=== PATIENT | female | born 1980 | race African-American/Black ===

== ENCOUNTER 2018-08-30 14:50 | Emergency (ER) | payer OTHER ==
[~2018-08-30] VITALS: Ht 170.2 cm; Wt 59.0 kg
[~2018-08-30 14:50] MED LIST: RIZATRIPTAN5 MG PO; TOPI25 PO
[2018-08-30] MEDS ORDERED: METO10 PO (20:17)
[2018-08-30] MEDS ORDERED: BENADRYL25 MG PO (20:17)
== END 2018-08-30 20:51 | disposition home or self-care (01) ==
LOC: ER 14:50
DX: R51 Headache (principal); Z88.6 Allergy status to analgesic agent; Z79.899 Other long term (current) drug therapy
CPT/HCPCS: 96374; 96375; 99283-25; J1100; J1200; J2765; J7030

== ENCOUNTER 2018-09-06 23:32 | Emergency (ER) | payer OTHER ==
[~2018-09-06] VITALS: Ht 170.2 cm; Wt 59.0 kg
[~2018-09-06 23:32] MED LIST changes: +BENADRYL25 MG PO; +METO10 PO
[2018-09-07] MEDS ORDERED: HYDR1TAB94 PO (00:11)
== END 2018-09-07 02:04 | disposition home or self-care (01) ==
LOC: ER 23:32
DX: G43.909 Migraine, unspecified, not intractable, without status migrainosus (principal)
CPT/HCPCS: 96361; 96374; 96375; 99283-25; J0780; J1200; J7030

== ENCOUNTER 2018-09-11 17:18 | Emergency (ER) | payer BC ==
[~2018-09-11] VITALS: Ht 167.6 cm; Wt 61.2 kg
[~2018-09-11 17:18] MED LIST changes: +HYDR1TAB94 PO
== END 2018-09-11 18:45 | disposition home or self-care (01) ==
LOC: ER 17:18
DX: G43.909 Migraine, unspecified, not intractable, without status migrainosus (principal); Z88.8 Allergy status to other drugs, medicaments and biological substances
CPT/HCPCS: 96374; 96375; 99282-25; J1100; J1200; J2765

== ENCOUNTER 2018-09-27 23:17 | Emergency (ER) | payer BC ==
[~2018-09-27] VITALS: Ht 167.6 cm; Wt 61.2 kg
[2018-09-27] MEDS ORDERED: ACET500 PO (23:44)
== END 2018-09-28 04:05 | disposition home or self-care (01) ==
LOC: ER 23:17
DX: S09.90XA Unspecified injury of head, initial encounter (principal); W01.198A Fall on same level from slipping, tripping and stumbling with subsequent striking against other object, initial encounter; Z88.8 Allergy status to other drugs, medicaments and biological substances; G43.909 Migraine, unspecified, not intractable, without status migrainosus
CPT/HCPCS: 70450; 96361; 96374; 96375; 99284-25; J1100; J1200; J2765; J7030

== ENCOUNTER → 2018-11-25 | Outpatient (CLI) | payer SELFPAY ==
[~2018-11-25] MED LIST changes: +ACET500 PO
== END ==
LOC: LAB 11:17 → LAB SHORT 11:17
DX: R30.0 Dysuria (principal)
CPT/HCPCS: 87077; 87086; 87186

== ENCOUNTER 2019-08-11 20:06 | Observation (INO) | payer BC ==
[~2019-08-11] VITALS: Ht 170.2 cm; Wt 64.5 kg
[2019-08-11 20:23] LABS: BASOPHILS ABSOLUTE AUTO 0.03 K/mm3 (0.00-0.23); BASOPHILS PERCENT AUTO 0 % (0-2); EOSINOPHILS ABSOLUTE AUTO 0.26 K/mm3 (0.00-0.68); EOSINOPHILS PERCENT AUTO 3 % (0-6); Hematocrit 36.6 % (33.0-51.0); Hemoglobin 12.4 g/dL (11.5-16.0); IMMATURE GRAN ABSOLUTE AUTO 0.02 K/mm3 (0.00-0.10); IMMATURE GRAN PERCENT AUTO 0 % (0-1); LYMPHOCYTES ABSOLUTE AUTO 2.77 K/mm3 (0.84-5.20); LYMPHOCYTES PERCENT AUTO 34 % (21-46); MONOCYTES ABSOLUTE AUTO 0.43 K/mm3 (0.16-1.47); MONOCYTES PERCENT AUTO 5 % (4-13); Mean Corpuscular HGB 28.4 pg (26.0-34.0); Mean Corpuscular HGB Conc 33.9 g/dL (31.5-36.5); Mean Corpuscular Volume 84 fL (80-100); Mean Platelet Volume 10.1 fL (9.1-12.4); NEUTROPHILS ABSOLUTE AUTO 4.66 K/mm3 (1.96-9.15); NEUTROPHILS PERCENT AUTO 57 % (41-73); Platelet Count 269 K/mm3 (150-400); RDW Coefficient Variation 13.4 % (11.7-14.2); RDW Standard Deviation 41.8 fL (35.1-46.3); Red Blood Cell Count 4.36 M/mm3 (3.80-5.20); White Blood Cell Count 8.17 K/mm3 (4.00-11.30)
[2019-08-11 20:36] LABS: Alanine Aminotransfer (ALT/SGP 16 U/L (12-78); Albumin/Globulin Ratio 1.1 (0.8-1.8); Alk Phos 43 U/L (50-136); Anion Gap 9 mmol/L (6-16); Aspartate Aminotrans (AST/SGOT 15 U/L (12-37); Bilirubin, Total 0.3 mg/dL (0.1-1.0); Blood Urea Nitrogen 12 mg/dL (8-24); Bun/Creatinine Ratio 15.6 (12.0-20.0); CO2, Blood 21 mmol/L (21-32); Calcium, Blood 9.2 mg/dL (8.5-10.1); Chloride, Blood 109 mmol/L (98-108); Creatinine, Blood 0.77 mg/dL (0.40-1.00); Globulin, Blood 3.7 g/dL (2.2-4.0); Glomerular Filtration Rate >60 (60-); Glucose, Blood 107 mg/dL (70-99); Potassium, Blood 3.3 mmol/L (3.5-5.5); Sodium, Blood 139 mmol/L (136-145); Total Protein, Blood 7.7 g/dL (6.4-8.2)
[2019-08-11 20:37] LABS: International Normalized Ratio 0.99; Prothrombin Time Results 10.5 Sec (9.7-11.5)
[2019-08-12 02:01] LABS: Source, Urine Clean Catch
[2019-08-12 02:05] LABS: Bilirubin, Urine Neg (Neg); Blood, Urine 1+ (Neg); Glucose Qualitative, Urine 4+ (Neg); Ketones, Urine 2+ (Neg); Leukocyte Esterase, Urine Neg (Neg); Nitrite, Urine Neg (Neg); Protein, Urine 1+ (Neg); Specific Gravity, Urine 1.005 (1.003-1.022); Urobilinogen, Urine 1+ (Normal)
[2019-08-12 02:12] LABS: Appearance, Urine Clear (Clear); Color, Urine Yellow (P-Yellow)
[2019-08-12 02:13] LABS: Bacteria Rare /hpf; Squamous Epithelial Cells Few /hpf (Few); White Blood Cells, Urine Not Seen /hpf (0-5)
--- NOTE | 2019-08-12 02:14 | NUR ---
MRI SCREENING FORM FILLED OUT, SIGNED BY PATIENT AND FAXED TO IMAGING.
[2019-08-12 02:23] LABS: U Amphetamine Screen Not Detected; U Barbituate Screen Not Detected; U Benzodiazapine Screen Not Detected; U Buprenorphine Screen Not Detected; U Cannabinoids Screen Not Detected; U Cocaine Screen Not Detected; U Methadone Screen Not Detected; U Methamphetamine Screen Not Detected; U Opiates Screen Not Detected; U Oxycodone Screen Not Detected; U Phencyclidine Screen Not Detected
[2019-08-12 02:24] LABS: U Propoxyphene Screen Not Detected
--- NOTE | 2019-08-12 04:56 | NUR ---
SHIFT SUMMARY PT NEW ED ADMIT THIS EVENING. PT CAME TO ED WITH STROKE LIKE SYMPTOMS. BY THE TIME PT WAS ADMITTED SYMPTOMS HAD COMPLETELY RESOLVED. PUPILS ARE EQUAL AND REACTIVE. BUNK HOUSE WORKER ARE EQUAL AND STRONG. NO FACIAL DROOP NOTED. SPEECH APPEARS CLEAR. PT IS FROM [place] AND SPEAKS PRIMARILY [place], VERY LITTLE INDONESIAN. IS AT BEDSIDE AND ASSISTS W/ TRANSLATION. PT DOES CONTINUE TO REPORT VERY MINIMAL HEADACHE, WORSENED BY RESPIRATORY PANEL COLLECTION. PT SOON AFTER FELL ASLEEP AND SLEPT THE REMAINDER OF THE NIGHT. VITAL SIGNS STABLE. UA SENT TO LAB. MRI SCREENING FORM COMPLETED AND FAXED TO IMAGING. TELEMETRY PLACED READING SR IN THE 60'S. NO ACUTE CHANGES SINCE ADMISSION. WILL CONTINUE TO MONITOR AND REPORT TO DAY RN.
[2019-08-12 05:33] LABS: Adenovirus Not Detected (NOT DETECT); Bordetella pertussis Not Detected (NOT DETECT); Chlamydophila pneumoniae Not Detected (NOT DETECT); Coronavirus 229E Not Detected (NOT DETECT); Coronavirus HKU1 Not Detected (NOT DETECT); Coronavirus NL63 Not Detected (NOT DETECT); Coronavirus OC43 Not Detected (NOT DETECT); Human Metapneumovirus Not Detected (NOT DETECT); Human Rhinovirus/Enterovirus Not Detected (NOT DETECT); Influenza A Not Detected (NOT DETECT); Influenza A/2009-H1 Not Detected (NOT DETECT); Influenza A/H1 Not Detected (NOT DETECT); Influenza A/H3 Not Detected (NOT DETECT); Influenza B Not Detected (NOT DETECT); Mycoplasma pneumoniae Not Detected (NOT DETECT); Parainfluenza Virus 1 Not Detected (NOT DETECT); Parainfluenza Virus 2 Not Detected (NOT DETECT); Parainfluenza Virus 3 Not Detected (NOT DETECT); Parainfluenza Virus 4 Not Detected (NOT DETECT); Respiratory Syncytial Virus Not Detected (NOT DETECT)
[2019-08-12 06:25] LABS: Hematocrit 36.4 % (33.0-51.0); Hemoglobin 11.7 g/dL (11.5-16.0); Mean Corpuscular HGB 27.9 pg (26.0-34.0); Mean Corpuscular HGB Conc 32.1 g/dL (31.5-36.5); Mean Platelet Volume 10.2 fL (9.1-12.4); Platelet Count 255 K/mm3 (150-400); RDW Coefficient Variation 13.9 % (11.7-14.2); RDW Standard Deviation 44.2 fL (35.1-46.3)
[2019-08-12 06:28] LABS: Mean Corpuscular Volume 87 fL (80-100)
[2019-08-12 06:49] LABS: Alanine Aminotransfer (ALT/SGP 21 U/L (12-78); Albumin, Blood 3.3 g/dL (3.4-5.0); Alk Phos 43 U/L (50-136); Anion Gap 6 mmol/L (6-16); Aspartate Aminotrans (AST/SGOT 15 U/L (12-37); Bilirubin, Total 0.4 mg/dL (0.1-1.0); Blood Urea Nitrogen 13 mg/dL (8-24); Bun/Creatinine Ratio 16.7 (12.0-20.0); CO2, Blood 22 mmol/L (21-32); Calcium, Blood 8.4 mg/dL (8.5-10.1); Chloride, Blood 114 mmol/L (98-108); Creatinine, Blood 0.78 mg/dL (0.40-1.00); Globulin, Blood 3.3 g/dL (2.2-4.0); Glomerular Filtration Rate >60 (60-); Glucose, Blood 136 mg/dL (70-99); Potassium, Blood 4.4 mmol/L (3.5-5.5); Sodium, Blood 142 mmol/L (136-145); Total Protein, Blood 6.6 g/dL (6.4-8.2)
--- NOTE | 2019-08-12 15:07 | NUR ---
PATIENT COMPLAINED OF ANXIETY, FEAR RELATED TO HAVING ANOTHER EPISODE LIKE LAST NIGHT. PATIENT REQUESTED FOR AN ANTIANXIETY MEDICATION. DR MORALES WAS CALLED AT 1506 AND RELATED THE MESSAGE. DR MORALES STATES HE WILL PUT AN ORDER INTO THE EMAR. TRANSLATER PHONE PLACED IN PATIENT'S PHONE.
--- NOTE | 2019-08-12 16:31 | NUR ---
SHIFT SUMMARY THE PATIENT IS PLEASANT AND COOPERATIVE WITH STAFF. HAD AN EPISODE OF ANXIETY THIS AFTERNOON WHICH RESPONDED TO REQUESTED ANTI-ANXIETY MEDICATION. ALSO HAD AN EPISODE OF PAIN TO THE RIGHT SIDE OF HER FORHEAD; ADMINISTERED IV PAIN MEDICATION WITH EFFECTIVENESS. BP A LITTLE LOW THIS MORNING HOWEVER RESOLVED ON IT'S OWN, ALL OTHER VITALS STABLE AND WNL. THE PATIENT/FAMILY CALLS FOR HELP APPROPRIATELY. THERE ARE NO OTHER ACUTE CHANGES NOTED OR REPORTED AT THIS TIME. WILL CONTINUE TO MONITOR THE PATIENT.
--- NOTE | 2019-08-12 21:48 | NUR ---
PAIN: PATIENT REPORTS ABD. CRAMP LIKE PAIN, NO BM IN 3 DAYS. PATIENT REQUEST TYLENOL AND PRUNE JUICE, REPORTS PRUNE JUICE WORKS WELL AT HOME. PAIN IS IMPROVED WITH TYLENOL AND AWAITING RESULT OF PRUNE JUICE.
--- NOTE | 2019-08-12 21:51 | NUR ---
LANGUAGE LINE: LANGUAGE LINE WAS USED FOR ASSESSMENT, HUNTER SKIN DIVER [phone]. PATIENT IS ABLE TO MAKE NEEDS KNOWN BUT FULL ASSESSMENT WAS DONE WITH ASSISTANCE OF BIOFUELS PRODUCT MANAGER.
--- NOTE | 2019-08-13 00:08 | NUR ---
HEADACHE: PATIENT VOMITED 200ML EMESIS AND REPORTED HEADACHE STARTING AT 3/10. ZOFRAN WAS GIVEN FOR NAUSEA WITH GOOD EFFECT. HEADACHE PAIN QUICKLY INCREASED TO 5/10 AND THEN 10/10, WHILE WAITING FOR MEDICATION TO BE RECIEVED FROM PHARMACY, ABOUT 15 MIN. IMETREX AND IV FENTANYL WERE GIVEN WITH FAIR EFFECT. PATIENT IS RESTING IN BED WITH EYES CLOSED, FAMILY REMAINS AT BEDSIDE.
--- NOTE | 2019-08-13 07:22 | NUR ---
SHIFT SUMMARY: PATIENT SLEPT WELL THROUGHT THE SHIFT WITH FAMILY AT BEDSIDE. WOKE THIS MORNING REPORTING HEAD PRESSURE, IMETREX WAS GIVEN IMMEDIATELY WHEN PAIN WAS AT 3/10 WITH GOOD EFFECT.
--- NOTE | 2019-08-13 09:25 | NUR ---
PATIENT IS SLEEPING VERY WELL AT THIS TIME. FAMILY HAS ASKED THAT I ADMINISTER MEDICATIONS A LITTLE BIT LATER AND LET HER SLEEP IN A BIT LONGER. DID CHECK ON PATIENT AND SHE IS DOING OKAY. SLEEPING WITH DAUGHTER AT BEDSIDE.
--- NOTE | 2019-08-13 12:11 | NUR ---
LATE ENTRY FOR 08/12/19. DR MORALES IS AWARE THAT [facility]SA ORIGINALLY SCHEDULED FOR 1500 ON 08/12/19 WAS ADMINISTERED TO PATIENT AND THEN DISCONTINUED BY PHARMACY AFTER ADMINISTRATION OCCURED. DR MORALES WITHOUT CONCERNS OR ISSUES.
--- NOTE | 2019-08-13 12:54 | NUR ---
FAMILY FRIEND, NYLA, CAME TO ME AT NURSE ENVIRONMENTAL GEOLOGIST AND REQUESTED TO SPEAK TO THE NURSING ALLIGATOR HUNTER REGARDING TRANSFER TO [facility]. I CALLED NURSING ALLIGATOR HUNTER AND RELAYED THE MESSAGE AND SHE WILL BE UP HERE SHORTLY TO SPEAK WITH THE FAMILY. I DID GIVE THE NURSING ALLIGATOR HUNTER A HEADS UP REGARDING FAMILY/FRIENDS DINAMIC.
--- NOTE | 2019-08-13 17:03 | NUR ---
SHIFT SUMMARY THE PATIENT HAD AN EVENTFUL DAY WITH A COUPLE MIGRAINE HEADACHE EPISODES DURING THIS SHIFT. THE PATIENT SLEPT A BIT BUT WOULD WAKE WITH A HORRIBLE MIGRAINE IN ADDITION TO THE MIGRAINE SHE WOULD HAVE NAUSEA. THE PATIENT SEEMED TO RESPOND BEST TO THE TORADOL AND PO DILAUDID AND IS STILL FEELING WELL AT THIS TIME AND IS BACK TO HERSELF COMMUNICATING WITH STAFF AND FAMILY BEST SHE CAN. DR MORALES HAS BEEN IN COMMUNICATION WITH A NEUROSURGEON AND NEUROLOGIST UP AT [facility] AND HAS PUT IN ORDERS FOR A NEW MEDICATION REGIMEN TO TRY; THE FAMILY IS ON-BOARD. THE PATIENTS VITALS HAVE BEEN STABLE AND WNL. SHE IS RELAXING IN HER BED WITH HER AND FRIEND AT BEDSIDE. WILL CONTINUE TO MONITOR AND PROVIDE CARE NEEDED.
--- NOTE | 2019-08-14 04:10 | NUR ---
PT'S CAME OUT OF THE ROOM AT APPOXIMATELY 0345 STATING THAT THE PT WAS HAVING A SEVERE MIGRAINE. PT STATED THAT THE MIGRAINE WAS A 5 INITIALLY WHEN i ENTERED THE ROOM, WHICH QUICKLY CRAIG TO A 7 AND THEN TO A 10. PT WAS ADMINISTERED IV TORADOL, BENADRYL, AND COMPAZINE PER EMAR. PT WAS ALSO ADMINISTERED SCHEDULED TYLENOL AT THIS TIME, PREVIOUSLY SKIPPED DUE TO FAMILY'S REQUEST NOT TO WAKE PT. PT CALMED CONSIDERABLY AND IS RESTING PEACEFULLY 20 MINUTES AFTER MEDICATION ADMINISTRATION.
--- NOTE | 2019-08-14 05:22 | NUR ---
PT A/O THROUGH THIS SHIFT. PT WOKE ONCE EARLY IN THE SHIFT, STATING NO PAIN. AT 0345 PT WOKE WITH EXTREME MIGRAINE. PT MEDICATED PER EMAR AND WAS RESTING PEACEFULLY SHORTLY AFTER. HAS BEEN IN THE ROOM FOR MOST OF THIS SHIFT. PT AND DENY ANY FURTHER NEEDS.
--- NOTE | 2019-08-14 09:46 | NUR ---
PATIENT CONTINUES TO SLEEP COMFORTABLY AT THIS TIME. FAMILY DOES NOT WANT PATIENT TO BE DISTURBED FOR MEDICATION WHILE SHE IS SLEEPING. WILL OFFER SCHEDULED MEDS ONCE SHE IS AWAKE.
--- NOTE | 2019-08-14 12:40 | NUR ---
I WITNESSED THE PATIENT AT THE ONSET OF HER LATEST MIGRAINE THIS MORNING. SHE BEGAN TO MOAN AND SAY "MY HEAD" IN HER LANGUAGE OF KYRGYZ. THE PATIENT WAS ALERT, HOWEVER INAPPROPRIATE IN HER RESPONSES...ACTUALLY LACK OF RESPONSES. THE PATIENT LAID IN BED WITH HER EYES CLOSED, I OPENED BOTH EYES AND EXAMINED THEM WITH A PEN LIGHT AND THEY REACTED BRISK AND EQUALLY. THE PATIENT WAS UNABLE TO RESPOND TO REQUESTS OR QUESTIONS. SHE WAS NONRESPONSIVE. I ADMINISTERED THE PATIENT THE IV TORADOL AND COMPAZINE, HOWEVER HELD THE IV BENADRYL PER FAMILY REQUEST. THE MEDICATION BECAME EFFECTIVE PRETTY QUICKLY AND THE PATIENT SLOWLY RETURNED TO HER BASELINE OVER THE NEXT 10 MINUTES: RESPONDING TO QUESTIONS AND REQUESTS APPROPRIATELY AND AT HER BASELINE. THEY PATIENT WAS ASKED BY ME IF SHE REMEMBERS WHEN I LOOKED INTO HER EYES WITH A FLASHLIGHT AND SHE DENIED IT. THE FIRST RECOLLECTION THE PATIENT SAYS SHE HAD WAS TRYING TO GO TO THE BATHROOM, WHICH OCCURED JUST PRIOR TO ME MEDICATING HER. HER HAD TO LITERALLY CARRY THE PATIENT TO AND FROM THE BATHROOM WHEN WE TRIED TO STAND HER UP SHE WAS COMPLETELY FLACCID AND WOULD HAVE FELL TO THE GROUND IF THERE WERE NO ONE AT HER SIDE. THE PATIENT IS NOW FEELING BETTER AND MORE AT HER HOSPITAL BASELINE.
--- NOTE | 2019-08-14 16:25 | NUR ---
SHIFT SUMMARY THE PATIENT HAS HAD ONE MIGRAINE EPISODE THIS SHIFT, SEE PREVIOUS NURSE NOTE. SHE WAS TREATED WITH IV TORADOL AND IV COMPAZINE WITHOUT THE IV BENADRYL PER THE FAMILY REQUEST THEY WERE HOPING THE PATIENT WOULD STAY AWAKE A LITTLE BIT. THE PATIENT HAS TAKEN LITTLE NAPS T/O THE DAY BUT HAS OTHERWISE BEEN AWAKE AND SOCIAL WITH HER FAMILY AND FRIENDS WHO ARE VISITING. DR MORALES CAME AND SAW THE PATIENT AND GAVE A NEW ORDER TO TRY PO TOPAMAX, FOR LANDERS PREVENTION. THE PATIENT WAS ADMINISTERED THE MEDICATION AND HAS HAD NO ADVERSE REACTIONS TO THE MEDICATION THUS FAR. I PRINTED OUT AND GAVE MARILYN, THE PATIENT'S , SEVERAL PIECES OF EDUCATIONAL MATERIAL REGARDING THE PATIENTS CONDITION AND THE MEDICATIONS SHE IS TAKING CURRENTLY, OR HAS DURING THIS STAY. THE PATIENT IS CURRENTLY RESTING IN HER ROOM AT THIS TIME WITH VISITORS AT THE BEDSIDE. LANDERS IS MANAGED AT THIS TIME. WILL CONTINUE TO MONITOR AND PROVIDE CARE NEEDED.
--- NOTE | 2019-08-14 17:47 | NUR ---
PATIENT AND DECIDED THAT THEY WILL NOT DISCHARGE HOME TONIGHT D/T PHARMACIES BEING CLOSED AND NOT BEING ABLE TO WOODS BOSS PRESCRIPTIONS TONIGHT. CALLED AND NOTIFIED DR MORALES. DR MORALES PLACING ORDERS INCLUDING TOPAMAX TO CONTINUE AND D/C ORDERS FOR TOMORROW.
[2019-08-14] MEDS ORDERED: ASPI81CH PO (18:32)
[2019-08-14] MEDS ORDERED: KETO10 PO (18:35)
[2019-08-14] MEDS ORDERED: SUMA25 PO (18:38)
--- NOTE | 2019-08-15 04:28 | NUR ---
08/14/19 @2130 CALLED INTO PT'S ROOM BY . STATED CONCERNED PT WAS TALKING ON THE PHONE WITH BROTHER AND NOTED PT'S TONGUE APPEARED TO BE SWOLLEN AND PT. WAS NOT ACTING LIKE HERSELF. THIS NURSE PERFORMED NEURO ASSESSMENT ON PT. NO DEFICITS NOTED. PT. A&O X4, SITTING UP IN BED AND ABLE TO ANSWER QUESTIONS CORRECTLY. TONGUE NOTED TO BE WNL AND VSS. PT. DENIED ANY PAIN OR DISCOMFORT. PT'S INSISTED PHYSICIAN BE NOTIFED. CALL PLACED TO HOSPITALIST BIOMEDICAL INSTRUMENT TECHNICIAN. DR. TALLEY CAME UP TO FLOOR TO EVALUATE PT. AND SPEAK WITH THE FAMILY. INSTRUCTED BY DR. TALLEY TO HOLD NIGHT TIME DOSE OF TOPAMAX PER FAMILY REQUEST. PT'S STATED WAS STILL CONCERNED RE PT'S CONDITION. BUT AGREED TO FOLLOW THROUGH WITH D/C TOMORROW PER PHYSICIAN RECOMMEDATION AND ORDERS.
--- NOTE | 2019-08-15 04:41 | NUR ---
SHIFT SUMMARY- PT. A&OX4, PLEASANT AND COOPEATIVE WITH CARE. PT. APPEARED TO BE SLEEPING COMFORTABLY IN BED AFTER RECEIVING MIDNIGHT DOSE OF TYLENOL. NO APPARENT DISTRESS NOTED. PT. DENIED ANY PAIN OR DISCOMFORT T/O THE NIGHT. NEURO CHECKS DONE PER ORDER, NO DEFICITS NOTED. AT THE BEDSIDE. PT. ANTICIPATING D/C TO HOME IN THE AM. CALL LIGHT WITHIN REACH AND SIDE RAILS UP X2. WILL CONT TO MONITOR.
[2019-08-15] MEDS ORDERED: TOPI25C PO (08:16)
--- NOTE | 2019-08-15 11:10 | NUR ---
TALKED TO ABOUT SOMETHING FOR NAUSEA. REQUEST ZOFRAN ODT. OK TO ORDER 8MG ODT.
[2019-08-15] MEDS ORDERED: ONDA4ODT SL (11:21)
[2019-08-15] MEDS ORDERED: BENADRYL25 MG PO (11:22)
--- NOTE | 2019-08-15 12:22 | NUR ---
Upom receiving an admit referral, I visited patient. Patient is sitting on EOB and alert. Patient's Al greets me and introduces me to patient and patient he tells me some of his concerns about the care that patient has received. Patient advocate, Zenia, walks in just as we were talking and so Al sits at one end of the room while I sit near patient. Patient has a aquarium tank attendant clyde on her phone which allows us to communicate freely. Patient tells me of the horrific head pain that is exhausting at times. 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 Patient tells me her armen in God is her source of strength. I read Bible verses to her, I talk with her about His love and strength and I provide prayer. Patient responds well and shows signs of an elevated mood. I will continue to remain available to patient and family.
--- NOTE | 2019-08-15 12:39 | NUR ---
REVIEW ALL INFO W/. REVIEW ALL MEDS AND AWARE TO OCCUPATIONAL NURSE AT [facility]. AWAITING PATIENT ADVOCATE AND CHARLIE FROM [employer] TO FINISH. AWARE MARTIN WILL CALL WITH F/U AND WILL EVENTUALLY NEED F/U W/NEUROLOGY IN [place]. ANSWER ALL QUESTIONS.
== END 2019-08-15 14:10 | disposition home or self-care (01) ==
LOC: ER 20:06 → MEDS 20:07 → ER 20:07 → MEDS 20:08 → ENPENDDIS 08-15 07:53 → MEDS 08-15 14:10
PROVIDERS: Emergency Medicine; ADMIT Internal Medicine
DX: G43.909 Migraine, unspecified, not intractable, without status migrainosus (principal); R53.1 Weakness; G93.5 Compression of brain; E87.6 Hypokalemia; G89.29 Other chronic pain; Z88.6 Allergy status to analgesic agent; Z79.82 Long term (current) use of aspirin; Z79.899 Other long term (current) drug therapy
CPT/HCPCS: 0099U; 36415; 70450; 70496; 70498; 70551; 80053; 81001; 85025; 85027; 85610; 93005; 93010; 93306; 96361; 96372; 96374-59; 96375; 96375-59; 96376; 99285-25; A9270; G0378; J0780; J1100; J1200; J1650; J1885; J2405; J3010; J7030; Q9967

== ENCOUNTER 2020-08-09 05:12 | Emergency (ER) | payer SELFPAY ==
[~2020-08-09] VITALS: Ht 170.2 cm; Wt 56.7 kg
[~2020-08-09 05:12] MED LIST changes: +ASPI81CH PO; +KETO10 PO; +ONDA4ODT SL; +SUMA25 PO; +TOPI25C PO
== END 2020-08-09 07:41 | disposition home or self-care (01) ==
LOC: ER 05:12
DX: S06.0X1A Concussion with loss of consciousness of 30 minutes or less, initial encounter (principal); Z79.899 Other long term (current) drug therapy; Z79.82 Long term (current) use of aspirin; Z88.6 Allergy status to analgesic agent; Z88.8 Allergy status to other drugs, medicaments and biological substances; W01.190A Fall on same level from slipping, tripping and stumbling with subsequent striking against furniture, initial encounter
CPT/HCPCS: 70450; 96372; 99284-25; A9270; A9270-GY; J1170

== ENCOUNTER → 2020-11-20 | Outpatient (CLI) | payer OTHER ==
[~2020-11-20] MED LIST changes: +Prochlorperazin10 MG PO
[2020-11-22 15:10] LABS: HPV 16 Negative (Negative); HPV 18 Negative (Negative); HPV OTHER HR TYPES Negative (Negative)
== END ==
LOC: PLD 08:30 → LAB SHORT 08:30
PROVIDERS: Student in an Organized Health Care Education/Training Program
DX: Z01.419 Encounter for gynecological examination (general) (routine) without abnormal findings (principal); A63.0 Anogenital (venereal) warts
CPT/HCPCS: 87624; 88305; G0145

== ENCOUNTER → 2020-11-28 | Outpatient (CLI) | payer OTHER ==
[2020-11-30 18:06] LABS: CHLAMYDIA BY NAA Negative (Negative); GONOCOCCUS BY NAA Negative (Negative); TRICH VAG BY NAA Negative (Negative)
== END | disposition home or self-care (01) ==
LOC: LAB EV 08:30 → LAB SHORT 08:30
PROVIDERS: Student in an Organized Health Care Education/Training Program
DX: N89.8 Other specified noninflammatory disorders of vagina (principal)
CPT/HCPCS: 87491; 87591; 87661

== ENCOUNTER 2020-12-04 01:45 | Emergency (ER) | payer OTHER ==
[~2020-12-04 01:45] MED LIST changes: -Prochlorperazin10 MG PO
[2020-12-04] MEDS ORDERED: Prochlorperazin10 MG PO (04:18)
== END 2020-12-04 04:42 | disposition home or self-care (01) ==
LOC: ER 01:45
DX: G43.909 Migraine, unspecified, not intractable, without status migrainosus (principal)
CPT/HCPCS: 70450; 96374; 96375; 99284-25; J0780; J1200; J1885; J7030

== ENCOUNTER 2023-08-15 06:51 | Emergency (ER) | payer OTHER ==
[~2023-08-15] VITALS: Ht 165.1 cm; Wt 61.2 kg
[~2023-08-15 06:51] MED LIST changes: +Prochlorperazin10 MG PO
[2023-08-15 08:31] VITALS: BP 104/69
== END 2023-08-15 09:12 | disposition home or self-care (01) ==
LOC: ER 06:51
DX: G43.909 Migraine, unspecified, not intractable, without status migrainosus (principal); R11.2 Nausea with vomiting, unspecified
CPT/HCPCS: 96361; 96374; 96375; 99283-25; J0780; J1200; J7030

== ENCOUNTER 2024-07-17 01:18 | Emergency (ER) | payer OTHER ==
[~2024-07-17] VITALS: Ht 170.2 cm; Wt 65.8 kg
[2024-07-17 01:34] VITALS: BP 136/88
[2024-07-17] MEDS ORDERED: Acetaminophen 325 MG TABLET PO ONE (01:40)
[2024-07-17] MEDS ORDERED: Diphth,Pertuss(Acell),Tet Vac 0.5 ML VIAL IM ONE (01:40)
[2024-07-17] MEDS ORDERED: Robaxin750 MG PO (05:38)
== END 2024-07-17 05:57 | disposition home or self-care (01) ==
LOC: ER 01:18
DX: S01.111A Laceration without foreign body of right eyelid and periocular area, initial encounter (principal); T14.8XXA Other injury of unspecified body region, initial encounter; M25.532 Pain in left wrist; W01.0XXA Fall on same level from slipping, tripping and stumbling without subsequent striking against object, initial encounter; G93.5 Compression of brain; Z88.6 Allergy status to analgesic agent; Z88.8 Allergy status to other drugs, medicaments and biological substances; Z88.5 Allergy status to narcotic agent; Z79.82 Long term (current) use of aspirin; Z79.899 Other long term (current) drug therapy
CPT/HCPCS: 12011; 70450; 70486; 72125; 73110; 90471; 90715; 99284-25; A9270

== ENCOUNTER → 2024-08-22 | Outpatient (CLI) | payer OTHER ==
[~2024-08-22] MED LIST changes: +Robaxin750 MG PO
[2024-08-23 13:07] LABS: Bacterial Vaginosis PCR Negative (NEGATIVE); Candida Group, PCR NOT DETECTED (NOT DETECT); Candida glabrata-krusei, PCR NOT DETECTED (NOT DETECT)
== END ==
LOC: LAB 16:59 → LAB SHORT 16:59
PROVIDERS: Obstetrics & Gynecology
DX: N76.0 Acute vaginitis (principal)
CPT/HCPCS: 87481; 87661; 87801

== ENCOUNTER → 2024-09-20 | Outpatient (CLI) | payer OTHER ==
[2024-09-20 15:03] LABS: Source, Urine Clean Catch
[2024-09-20 17:23] LABS: Appearance, Urine Hazy (Clear); Bilirubin, Urine Neg (Neg); Blood, Urine 1+ (Neg); Color, Urine Yellow (P-Yellow); Glucose Qualitative, Urine Neg (Neg); Ketones, Urine Neg (Neg); Leukocyte Esterase, Urine 3+ (Neg); Nitrite, Urine Neg (Neg); Protein, Urine 1+ (Neg); Urobilinogen, Urine NORM (Normal)
[2024-09-20 17:34] LABS: Amorphous Light (0-Heavy); Bacteria Many /hpf; Hyaline Casts 0-2 /lpf (0-2); Squamous Epithelial Cells Few /hpf (Few); Transitional Epithelial Cells Rare /hpf (0-Rare)
[2024-09-20 20:39] LABS: Candida Group, PCR NOT DETECTED (NOT DETECT); Candida glabrata-krusei, PCR NOT DETECTED (NOT DETECT)
[2024-09-20 21:36] LABS: Bacterial Vaginosis PCR Positive (NEGATIVE)
== END ==
LOC: LAB SHORT 14:59 → LAB 14:59
PROVIDERS: Obstetrics & Gynecology
DX: N89.8 Other specified noninflammatory disorders of vagina (principal); R82.90 Unspecified abnormal findings in urine
CPT/HCPCS: 81001; 81515; 87086

== ENCOUNTER 2024-11-23 20:33 | Emergency (ER) | payer OTHER ==
[~2024-11-23] VITALS: Ht 170.2 cm; Wt 66.2 kg
[2024-11-23 21:03] VITALS: BP 130/82
[2024-11-23] MEDS ORDERED: HYDROcodone 5-APAP 325 TAB PO ONE (22:50)
== END 2024-11-23 23:34 | disposition home or self-care (01) ==
LOC: ER 20:33
DX: T14.90XA Injury, unspecified, initial encounter (principal); G43.909 Migraine, unspecified, not intractable, without status migrainosus; Z88.8 Allergy status to other drugs, medicaments and biological substances; Z88.6 Allergy status to analgesic agent; Z88.5 Allergy status to narcotic agent; Z79.82 Long term (current) use of aspirin; Z79.899 Other long term (current) drug therapy; V63.5XXA Driver of heavy transport vehicle injured in collision with car, pick-up truck or van in traffic accident, initial encounter
CPT/HCPCS: 73090; 73110; 73502; 73562-LT; 73590; 99284-25; A9270

== ENCOUNTER → 2025-04-10 | Outpatient (CLI) | payer SELFPAY ==
[2025-04-10 17:02] LABS: Candida Group, PCR NOT DETECTED (NOT DETECT); Candida glabrata-krusei, PCR NOT DETECTED (NOT DETECT)
[2025-04-10 17:30] LABS: Bacterial Vaginosis PCR Positive (NEGATIVE)
== END | disposition home or self-care (01) ==
LOC: LAB SHORT 13:38 → LAB 13:38
PROVIDERS: Obstetrics & Gynecology
DX: N76.0 Acute vaginitis (principal)
CPT/HCPCS: 81515

== ENCOUNTER → 2025-08-28 | Outpatient (CLI) | payer BC ==
[2025-08-28 19:19] LABS: Candida glabrata-krusei, PCR NOT DETECTED (NOT DETECT)
[2025-08-28 19:27] LABS: Bacterial Vaginosis PCR Positive (NEGATIVE); Candida Group, PCR DETECTED (NOT DETECT)
== END ==
LOC: LAB SHORT 14:26 → LAB 14:26
PROVIDERS: Obstetrics & Gynecology
DX: N89.8 Other specified noninflammatory disorders of vagina (principal)
CPT/HCPCS: 81515